=== PATIENT | female | born 1950 ===

== ENCOUNTER 2019-05-01 11:48 | Emergency (ER) | payer OTHER, BC ==
[~2019-05-01] VITALS: Ht 162.6 cm; Wt 74.8 kg
[2019-05-01] MEDS ORDERED: LIPITOR20 MG (11:58)
[2019-05-01] MEDS ORDERED: ATORVASTATIN CA20 MG (11:59)
[2019-05-01] MEDS ORDERED: FARXIGA5 MG (11:59)
[2019-05-01] MEDS ORDERED: JANUVIA25 MG (11:59)
[2019-05-01] MEDS ORDERED: PREDNISONE 5MG (11:59)
[2019-05-01] MEDS ORDERED: OMEPRAZOLE40 MG (12:00)
[2019-05-01] MEDS ORDERED: MONTELUKAST SODI4 M1 (12:00)
== END 2019-05-01 16:10 | disposition home or self-care (01) ==
LOC: ER 11:48
DX: K52.89 Other specified noninfective gastroenteritis and colitis (principal)